=== PATIENT | female | born 1975 | race Caucasian/White ===

== ENCOUNTER 2017-08-17 08:40 | Inpatient (IN) | payer OTHER ==
[2017-08-17 13:07] LABS: HEMATOCRIT 23.2 % (36.0-47.0)
[2017-08-17 13:07] LABS: HEMOGLOBIN 7.8 g/dL (12.0-15.5)
[2017-08-17] MEDS ORDERED: 0.9 % SODIUM CHLORIDE 10 ML DISP.SYRIN. IV ×2 (14:30)
[2017-08-17] MEDS: PANTOPRAZOLE SODIUM IV DRIP 80 MG in IV NORMAL SALINE 100ML 100 ML IV (17:44)
[2017-08-17] MEDS ORDERED: NICOTINE 21MG PATCH. TD (20:30)
[2017-08-17] MEDS: IV NORMAL SALINE 1000ML BAG 1,000 ML IV (20:44)
[2017-08-17] MEDS: ONDANSETRON PF 4 MG/2 ML VIAL. IV (20:44)
[2017-08-17] MEDS: MORPHINE SULFATE 4 MG/ML DISP.SYRIN. IV (20:46)
[2017-08-17 22:02] LABS: HEMOGLOBIN 7.1 g/dL (12.0-15.5)
[2017-08-17 22:11] LABS: HEMATOCRIT 20.8 % (36.0-47.0)
[2017-08-18] MEDS: MORPHINE SULFATE 4 MG/ML DISP.SYRIN. IV ×4 (00:37→19:52)
[2017-08-18] MEDS: PANTOPRAZOLE SODIUM IV DRIP 80 MG in IV NORMAL SALINE 100ML 100 ML IV ×2 (02:38→14:59)
[2017-08-18 05:27] LABS: MEAN CORPUSCULAR HEMOGLOBIN 30 pg (25-35); MEAN CORPUSCULAR HGB CONC 33 g/dL (31-37); MEAN CORPUSCULAR VOLUME 91 fL (79-100); PLATELET COUNT 301 x10^3/uL (140-400); RED BLOOD COUNT 2.05 x10^6/uL (3.50-5.40); RED CELL DISTRIBUTION WIDTH 13.2 % (11.5-14.5); WHITE BLOOD COUNT 12.3 x10^3/uL (4.0-11.0)
[2017-08-18] MEDS: IV NORMAL SALINE 1000ML BAG 1,000 ML IV (05:41)
[2017-08-18 05:48] LABS: ALBUMIN 2.3 g/dL (3.4-5.0); ALBUMIN/GLOBULIN RATIO 0.9 (1.0-1.7); ALK PHOS 45 U/L (46-116); ALT (SGPT) 14 U/L (14-59); ANION GAP 7 (6-14); AST (SGOT) 12 U/L (15-37); BLOOD UREA NITROGEN 21 mg/dL (7-20); BUN/CREATININE RATIO 35 (6-20); CALCIUM 7.3 mg/dL (8.5-10.1); CARBON DIOXIDE 23 mmol/L (21-32); CHLORIDE 117 mmol/L (98-107); CREATININE 0.6 mg/dL (0.6-1.0); GFR 109.1; GLUCOSE 84 mg/dL (70-99); POTASSIUM 3.4 mmol/L (3.5-5.1); SODIUM 147 mmol/L (136-145); TOTAL BILIRUBIN 0.2 mg/dL (0.2-1.0); TOTAL PROTEIN 4.8 g/dL (6.4-8.2)
[2017-08-18 05:52] LABS: HEMOGLOBIN 6.2 g/dL (12.0-15.5)
[2017-08-18 05:53] LABS: HEMATOCRIT 18.7 % (36.0-47.0)
[2017-08-18] MEDS: ONDANSETRON PF 4 MG/2 ML VIAL. IV ×2 (08:12→15:24)
[2017-08-18] MEDS: POTASSIUM CHLORIDE 40 MEQ in IV DEXTROSE 5% 1,000 ML IV ×2 (09:31→22:36)
[2017-08-18 09:54] LABS: IMMEDIATE SPIN CROSSMATCH 1 2
[2017-08-18] MEDS: IV RINGERS,LACTATED 1000ML 1,000 ML IV (11:58)
[2017-08-18] MEDS ORDERED: PROPOFOL 20 ML IV (12:04)
[2017-08-18 13:18] LABS: HEMATOCRIT 24.8 % (36.0-47.0)
[2017-08-18 13:18] LABS: HEMOGLOBIN 8.4 g/dL (12.0-15.5)
[2017-08-18] MEDS: SUCRALFATE 1 GM TABLET. PO ×3 (14:58→21:04)
[2017-08-18] MEDS: diphenhydrAMINE 50 MG/ML VIAL IVP (15:58)
[2017-08-18] MEDS ORDERED: HYDROCORTISONE 1% TOPICAL OINTMENT 30GM TUBE. TP (16:00)
[2017-08-19] MEDS: MORPHINE SULFATE 4 MG/ML DISP.SYRIN. IV ×4 (01:05→22:10)
[2017-08-19] MEDS: ONDANSETRON PF 4 MG/2 ML VIAL. IV ×3 (01:06→15:24)
[2017-08-19] MEDS: PANTOPRAZOLE SODIUM IV DRIP 80 MG in IV NORMAL SALINE 100ML 100 ML IV ×2 (01:06→07:00)
[2017-08-19] MEDS: IV RINGERS,LACTATED 1000ML 1,000 ML IV ×2 (01:20→14:58)
[2017-08-19 05:17] LABS: HEMATOCRIT 24.3 % (36.0-47.0); HEMOGLOBIN 8.2 g/dL (12.0-15.5); MEAN CORPUSCULAR HEMOGLOBIN 30 pg (25-35); MEAN CORPUSCULAR HGB CONC 34 g/dL (31-37); MEAN CORPUSCULAR VOLUME 90 fL (79-100); PLATELET COUNT 343 x10^3/uL (140-400); RED BLOOD COUNT 2.69 x10^6/uL (3.50-5.40); RED CELL DISTRIBUTION WIDTH 13.3 % (11.5-14.5); WHITE BLOOD COUNT 12.7 x10^3/uL (4.0-11.0)
[2017-08-19 05:42] LABS: ANION GAP 3 (6-14); BLOOD UREA NITROGEN 10 mg/dL (7-20); CALCIUM 8.2 mg/dL (8.5-10.1); CARBON DIOXIDE 29 mmol/L (21-32); CHLORIDE 107 mmol/L (98-107); CREATININE 0.7 mg/dL (0.6-1.0); GFR 91.3; GLUCOSE 137 mg/dL (70-99); POTASSIUM 4.2 mmol/L (3.5-5.1); SODIUM 139 mmol/L (136-145)
[2017-08-19] MEDS: SUCRALFATE 1 GM TABLET. PO ×4 (09:29→22:12)
[2017-08-19] MEDS ORDERED: ACETAMINOPHEN 650 MG/20.3 ML SOLUTION. PO (11:45)
[2017-08-19] MEDS: ACETAMINOPHEN 325 MG TABLET. PO (11:52)
[2017-08-19] MEDS: POTASSIUM CHLORIDE 40 MEQ in IV DEXTROSE 5% 1,000 ML IV ×2 (14:15→14:26)
[2017-08-19] MEDS: PANTOPRAZOLE 40 MG TABLET.DR. PO (17:19)
[2017-08-19 18:25] LABS: HEMOGLOBIN 8.2 g/dL (12.0-15.5)
[2017-08-19 18:25] LABS: HEMATOCRIT 23.6 % (36.0-47.0)
[2017-08-20] MEDS: ACETAMINOPHEN 325 MG TABLET. PO (00:22)
[2017-08-20] MEDS: ZOLPIDEM 5 MG TABLET. PO (01:00)
[2017-08-20] MEDS: MORPHINE SULFATE 4 MG/ML DISP.SYRIN. IV ×2 (02:54→08:51)
[2017-08-20 04:52] LABS: HEMATOCRIT 26.7 % (36.0-47.0); HEMOGLOBIN 9.1 g/dL (12.0-15.5); MEAN CORPUSCULAR HEMOGLOBIN 31 pg (25-35); MEAN CORPUSCULAR HGB CONC 34 g/dL (31-37); MEAN CORPUSCULAR VOLUME 90 fL (79-100); PLATELET COUNT 375 x10^3/uL (140-400); RED BLOOD COUNT 2.96 x10^6/uL (3.50-5.40); RED CELL DISTRIBUTION WIDTH 13.5 % (11.5-14.5); WHITE BLOOD COUNT 8.9 x10^3/uL (4.0-11.0)
[2017-08-20 05:15] LABS: ALBUMIN 2.9 g/dL (3.4-5.0); ALBUMIN/GLOBULIN RATIO 0.9 (1.0-1.7); ALK PHOS 66 U/L (46-116); ALT (SGPT) 21 U/L (14-59); ANION GAP 6 (6-14); AST (SGOT) 13 U/L (15-37); BLOOD UREA NITROGEN 8 mg/dL (7-20); BUN/CREATININE RATIO 11 (6-20); CALCIUM 9.1 mg/dL (8.5-10.1); CARBON DIOXIDE 30 mmol/L (21-32); CHLORIDE 107 mmol/L (98-107); CREATININE 0.7 mg/dL (0.6-1.0); GFR 91.3; GLUCOSE 106 mg/dL (70-99); POTASSIUM 3.7 mmol/L (3.5-5.1); SODIUM 143 mmol/L (136-145); TOTAL BILIRUBIN 0.2 mg/dL (0.2-1.0); TOTAL PROTEIN 6.3 g/dL (6.4-8.2)
[2017-08-20] MEDS: POTASSIUM CHLORIDE 40 MEQ in IV DEXTROSE 5% 1,000 ML IV (05:23)
[2017-08-20] MEDS: SUCRALFATE 1 GM TABLET. PO ×2 (08:49→11:38)
[2017-08-20] MEDS: PANTOPRAZOLE 40 MG TABLET.DR. PO (08:49)
== END 2017-08-20 11:48 | disposition home or self-care (01) | DRG 380 ==
LOC: 2 SOUTH 08:40 → 5 SOUTH 08-19 13:08 → 2 SOUTH 09:01
PROVIDERS: Internal Medicine
PROC: 0DB58ZX Excision of Esophagus, Via Natural or Artificial Opening Endoscopic, Diagnostic (ICD-10-PCS; principal; 2017-08-18 12:07)
PROC: 0DB88ZX Excision of Small Intestine, Via Natural or Artificial Opening Endoscopic, Diagnostic (ICD-10-PCS; 2017-08-18 12:07)
PROC: 0DB68ZX Excision of Stomach, Via Natural or Artificial Opening Endoscopic, Diagnostic (ICD-10-PCS; 2017-08-18 12:07)
PROC: 30233N1 Transfusion of Nonautologous Red Blood Cells into Peripheral Vein, Percutaneous Approach (ICD-10-PCS; 2017-08-18 12:07)
DX: K22.11 Ulcer of esophagus with bleeding (principal); E43 Unspecified severe protein-calorie malnutrition; K25.4 Chronic or unspecified gastric ulcer with hemorrhage; K92.0 Hematemesis; D62 Acute posthemorrhagic anemia; E78.5 Hyperlipidemia, unspecified; F12.90 Cannabis use, unspecified, uncomplicated; F17.210 Nicotine dependence, cigarettes, uncomplicated; G89.29 Other chronic pain; I95.1 Orthostatic hypotension; J44.9 Chronic obstructive pulmonary disease, unspecified; N18.9 Chronic kidney disease, unspecified; Z82.5 Family history of asthma and other chronic lower respiratory diseases; Z90.5 Acquired absence of kidney; Z90.81 Acquired absence of spleen; T39.395A Adverse effect of other nonsteroidal anti-inflammatory drugs [NSAID], initial encounter; Y92.89 Other specified places as the place of occurrence of the external cause; Z68.24 Body mass index [BMI] 24.0-24.9, adult
CPT/HCPCS: 36415; 80048; 80053; 85014; 85018; 85027; 86850; 86900; 86901; 86920; 88305; 88342; C9113; J1200; J2060; J2270; J2405; J2704; J7030; J7120; P9016